=== PATIENT | female | born 1965 | race American Indian/Alaskan Native ===

== ENCOUNTER 2021-11-30 19:20 | Emergency (ER) | payer MEDICAID ==
--- NOTE | 2021-11-30 21:35 | Emergency Department Report ---
HPI - General Chief Complaint: Abdominal Pain Time Seen by Provider: 11/30/21 21:23 - HPI HPI: Room 24 Patient is a 56-year-old female present with a chief complaint of abdominal pain and constipation. Patient states she has had epigastric abdominal pain intermittently for 1 month but worsened today. Patient describes the pain as "feeling as though I have to go to the bathroom." Patient states she has been constipated for 1 month. Patient states she has not passed stool in 1 month. Patient admits to nausea vomiting intermittently. Patient admits to subjective fever. ED Past Medical Hx - Past Medical History Hx Hypertension: Yes Hx CVA: Yes Hx Diabetes: Yes Hx GERD: Yes Hx Renal Disease: Yes (ESRD HD q. MWF) - Surgical History Additional Surgical History: Right chest Vas-Cath - Family History Family history: no significant - Social History Smoking Status: Never Smoker Substance Use Type: None - Medications Home Medications: Home Medications Medication Instructions Recorded Confirmed Last Taken Type Docusate Sodium [Colace] 100 mg PO BID #60 capsule 12/01/21 Unknown Rx Lactulose [Cephulac] 20 gm PO QDAY PRN #90 ml 12/01/21 Unknown Rx ED Review of Systems ROS: Stated complaint: WEAKNESS FROM DIALYSIS Other details as noted in HPI Constitutional: fever Eyes: denies: eye pain ENT: denies: throat pain Respiratory: cough Cardiovascular: denies: chest pain Endocrine: no symptoms reported Gastrointestinal: abdominal pain, nausea, vomiting, constipation Genitourinary: denies: abnormal menses Musculoskeletal: denies: back pain Neurological: denies: headache Physical Exam - Physical Exam Vital Signs: Vital Signs 11/30/21 20:59 Temperature 97.8 F Pulse Rate 91 H Respiratory 19 Rate Blood Pressure 133/72 O2 Sat by Pulse 99 Oximetry Physical Exam: GENERAL: The patient is well-developed well-nourished female lying on stretcher not appearing to be in acute distress. [] HEENT: Normocephalic. Atraumatic. Extraocular motions are intact. Patient has moist mucous membranes. NECK: Supple. Trachea midline CHEST/LUNGS: Clear to auscultation. There is no respiratory distress noted. Occasional cough HEART/CARDIOVASCULAR: Regular. There is no tachycardia. There is no gallop rub or murmur. ABDOMEN: Abdomen is soft, nontender. Patient has normal bowel sounds. There is no abdominal distention. SKIN: There is no rash. There is no edema. There is no diaphoresis. NEURO: The patient is awake, alert, and oriented. The patient is cooperative. The patient has normal speech. GCS 15 MUSCULOSKELETAL: There is no evidence of acute injury. ED Course Vital Signs 11/30/21 20:59 Temperature 97.8 F Pulse Rate 91 H Respiratory 19 Rate Blood Pressure 133/72 O2 Sat by Pulse 99 Oximetry - Reevaluation(s) Reevaluation #1: 12/01/21 03:06 Patient improved after large bowel movement in the ED ED Medical Decision Making - Lab Data Result diagrams: 11/30/21 21:38 11/30/21 21:38 Laboratory Tests 11/30/21 11/30/21 21:38 21:38 WBC 7.2 RBC 4.29 Hgb 13.7 Hct 42.0 MCV 98 H MCH 32 MCHC 33 RDW 15.6 H Plt Count 170 Lymph % (Auto) 12.8 L Josephine % (Auto) 7.2 Eos % (Auto) 0.9 Baso % (Auto) 0.4 Lymph # (Auto) 0.9 L Josephine # (Auto) 0.5 Eos # (Auto) 0.1 Baso # (Auto) 0.0 Seg Neutrophils % 78.7 H Seg Neutrophils # 5.6 Sodium 134 L Potassium 3.9 Chloride 96.2 L Carbon Dioxide 21 L Anion Gap 21 BUN 17 Creatinine 3.3 H Estimated GFR 15 BUN/Creatinine Ratio 5 Glucose 141 H Calcium 11.0 H Total Bilirubin 0.50 AST 16 ALT 10 Alkaline Phosphatase 59 Total Protein 7.7 Albumin 3.3 L Albumin/Globulin Ratio 0.8 Lipase 27 - Radiology Data Radiology results: report reviewed (CT abdomen pelvis), image reviewed (CT abdomen pelvis) [facility] [address] [place] [address] Cat Scan Report Signed Patient: PIPPA CAMARILLO MR#: [id number] : 1965 Acct:[id number] Age/Sex: 56 / F ADM Date: 11/30/21 Loc: ED Attending Dr: Ordering Physician: CHANTE DICKEY MD Date of Service: 11/30/21 Procedure(s): CT abdomen pelvis wo con Accession Number(s): [id number] cc: CHANTE DICKEY MD CT ABDOMEN AND PELVIS WITHOUT CONTRAST INDICATION / CLINICAL INFORMATION: Epigastric pain, n/v, constipation. TECHNIQUE: Axial CT images were obtained through the abdomen and pelvis without IV contrast. All CT scans at this location are performed using CT dose reduction for ALARA by means of automated exposure control. COMPARISON: None available. FINDINGS: LOWER CHEST: Bibasilar volume loss. LIVER: No significant abnormality GALLBLADDER/BILIARY TREE: No significant abnormality PANCREAS: No significant abnormality SPLEEN: No signif icant abnormality ADRENALS: No significant abnormality RIGHT KIDNEY / URETER: Punctate nonobstructive right renal stone. No urolithiasis or hydronephrosis. LEFT KIDNEY / URETER: No significant abnormality URINARY BLADDER: No significant abnormality REPRODUCTIVE ORGANS: No significant abnormality STOMACH / BOWEL: Stomach and small bowel are normal in caliber. No evidence of localized bowel inflammation or obstruction. Moderate stool in the colon with moderate distention of the rectal vault. Mild presacral/perirectal stranding without significant mural thickening. Appendix is not visualized, likely surgically absent. LYMPH NODES: No significant adenopathy. VASCULATURE: Abdominal aorta is normal in caliber. No acute abnormality. IVC filter. OTHER: Fat-containing umbilical hernia without complication. No free air, free fluid, or focal fluid collection. SKELETAL SYSTEM: Degenerative changes of the spine. No acute osseous findings. IMPRESSION: 1. Moderate constipation with rectal fecal impaction. There is mild presacral/perirectal fat stranding, which could reflect mild proctitis. 2. No other acute findings of the abdomen or pelvis. 3. Additional chronic and incidental findings as above. Signer Name: Luis Lagunas MD Signed: 11/30/2021 10:33 PM Workstation Name: [id number] Transcribed By: ELIEZER Dictated By: LUIS LAGUNAS MD Electronically Authenticated By: LUIS LAGUNAS MD Signed Date/Time: 11/30/212232 DD/ 27 TD/TT: - Differential Diagnosis Constipation, fecal impaction, small bowel obstruction Critical care attestation.: If time is entered above; I have spent that time in minutes in the direct care of this critically ill patient, excluding procedure time. ED Disposition Clinical Impression: Acute abdominal pain, Constipation Disposition: 01 HOME / SELF CARE / HOMELESS Is pt being admited?: No Does the pt Need Aspirin: No Condition: Stable Instructions: Abdominal Pain (ED), Constipation, Adult, [id number] Additional Instructions: Return to the emergency department should you develop worsening symptoms, inability to tolerate food or liquids, high fever or any other concerns Prescriptions: Lactulose [Cephulac] 20 gm PO QDAY PRN #90 ml PRN Reason: Constipation Docusate Sodium [Colace] 100 mg PO BID #60 capsule Referrals: DEANDRE WING MD [Staff Physician] - 3-5 Days (Dr. Wing is a blueprint duplicator. Please follow-up with him for further evaluation) Time of Disposition: 03:08
--- NOTE | 2021-11-30 22:13 | XRay Report ---
CHEST 1 VIEW 11/30/2021 9:45 PM INDICATION / CLINICAL INFORMATION: Cough. COMPARISON: None available. FINDINGS: SUPPORT DEVICES: Right PermCath is present with the tip projecting over the cavoatrial junction. HEART / MEDIASTINUM: No significant abnormality. LUNGS / PLEURA: No significant pulmonary or pleural abnormality. No pneumothorax. ADDITIONAL FINDINGS: No significant additional findings. IMPRESSION: 1. No acute findings. Signer Name: Mauricio Gaytan MD Signed: 11/30/2021 10:08 PM Workstation Name: [id number]
[2021-11-30 22:17] LABS: Basophils % (Auto) 0.4 % (0.0-1.8); Eosinophils # (Auto) 0.1 K/mm3 (0.0-0.4); Eosinophils % (Auto) 0.9 % (0.0-4.3); Hemoglobin 13.7 gm/dl (10.1-14.3); Lymphocytes # (Auto) 0.9 K/mm3 (1.2-5.4); Lymphocytes % (Auto) 12.8 % (13.4-35.0); Mean Corpuscular HGB Conc 33 % (30-34); Mean Corpuscular Volume 98 fl (79-97); Monocytes # (Auto) 0.5 K/mm3 (0.0-0.8); Monocytes % (Auto) 7.2 % (0.0-7.3); Platelet Count 170 K/mm3 (140-440); Red Blood Count 4.29 M/mm3 (3.65-5.03); Red Cell Distribution Width 15.6 % (13.2-15.2)
--- NOTE | 2021-11-30 22:37 | Cat Scan Report ---
CT ABDOMEN AND PELVIS WITHOUT CONTRAST INDICATION / CLINICAL INFORMATION: Epigastric pain, n/v, constipation. TECHNIQUE: Axial CT images were obtained through the abdomen and pelvis without IV contrast. All CT scans at this location are performed using CT dose reduction for ALARA by means of automated exposure control. COMPARISON: None available. FINDINGS: LOWER CHEST: Bibasilar volume loss. LIVER: No significant abnormality GALLBLADDER/BILIARY TREE: No significant abnormality PANCREAS: No significant abnormality SPLEEN: No significant abnormality ADRENALS: No significant abnormality RIGHT KIDNEY / URETER: Punctate nonobstructive right renal stone. No urolithiasis or hydronephrosis. LEFT KIDNEY / URETER: No significant abnormality URINARY BLADDER: No significant abnormality REPRODUCTIVE ORGANS: No significant abnormality STOMACH / BOWEL: Stomach and small bowel are normal in caliber. No evidence of localized bowel inflam mation or obstruction. Moderate stool in the colon with moderate distention of the rectal vault. Mild presacral/perirectal stranding without significant mural thickening. Appendix is not visualized, lik gi surgically absent. LYMPH NODES: No significant adenopathy. VASCULATURE: Abdominal aorta is normal in caliber. No acute abnormality. IVC filter. OTHER: Fat-containing umbilical hernia without complication. No free air, free fluid, or focal fluid collection. SKELETAL SYSTEM: Degenerative changes of the spine. No acute osseous findings. IMPRESSION: 1. Moderate constipation with rectal fecal impaction. There is mild presacral/perirectal fat strandin g, which could reflect mild proctitis. 2. No other acute findings of the abdomen or pelvis. 3. Additional chronic and incidental findings as above. Signer Name: Marcial Lagunas MD Signed: 11/30/2021 10:33 PM Workstation Name: [id number]
[2021-11-30 22:44] LABS: Albumin 3.3 g/dL (3.9-5)
[2021-12-01] MEDS: LACTULOSE 20 GM/30 ML ORAL LIQD PO ONE (00:22)
[2021-12-01 08:04] VITALS: BP 113/70
== END 2021-12-01 08:47 | disposition home or self-care (01) ==
LOC: ED 19:20
DX: R10.13 Epigastric pain (principal); K59.00 Constipation, unspecified; I10 Essential (primary) hypertension; E11.9 Type 2 diabetes mellitus without complications; K21.9 Gastro-esophageal reflux disease without esophagitis; Z86.73 Personal history of transient ischemic attack (TIA), and cerebral infarction without residual deficits; N28.9 Disorder of kidney and ureter, unspecified
CPT/HCPCS: 36415; 71045; 74176; 80053; 83690; 85025; 99285